=== PATIENT | female | born 1935 | race Caucasian/White ===

== ENCOUNTER 2023-01-20 15:39 | Inpatient (IN) ==
[2023-01-20] MEDS ORDERED: 0.9 % SODIUM CHLORIDE 1,000 ML IV ONE ×2 (15:54→18:02)
[2023-01-20] MEDS ORDERED: traMADol 50 MG TABLET PO ONE (17:03)
[2023-01-20 17:58] LABS: POC Calcium, Ionized 1.17 (1.16-1.32); POC Creatinine 0.7 (0.6-1.2); POC Potassium 3.2 (3.3-5.1)
[2023-01-20] MEDS ORDERED: POTASSIUM CHLORIDE 20 MEQ TABLET PO ONE (18:02)
[2023-01-20 18:22] LABS: Basophils # (Auto) 0.04 K/mcL (0.00-0.30); Basophils % (Auto) 0.4 % (0.0-2.0); Eosinophils # (Auto) 0.11 K/mcL (0.00-0.70); Hematocrit 40.2 % (34.1-44.9); Hemoglobin 13.7 g/dL (11.2-15.7); Lymphocytes % (Auto) 10.7 % (15.5-49.0); Mean Cell Volume 95.5 fL (80.0-100.0); Mean Corpuscular HGB Conc 34.1 g/dL (31.0-36.0); Monocytes # (Auto) 1.08 K/mcL (0.10-0.90); Monocytes % (Auto) 9.6 % (1.0-12.0); Neutrophils % (Auto) 75.8 % (38.0-78.0); Platelet Count 162 K/mcL (140-440); RBC 4.21 M/mcL (3.59-5.38); Red Cell Distribution Width 12.7 % (11.5-14.5); WBC 11.3 K/mcL (4.5-11.0)
[2023-01-20 18:51] LABS: ALT/SGPT 19 U/L (<40); AST/SGOT 25 U/L (<32); Albumin 3.5 gm/dL (3.2-5.2); Alkaline Phosphatase 63 U/L (39-117); Bilirubin,Direct < 0.2 mg/dL (0-0.3); Bilirubin,Total 0.5 mg/dL (0.1-1.0); Globulin 2.8 gm/dL (2.2-3.7)
[2023-01-20] MEDS ORDERED: IPRATROPIUM/ALBUTEROL 3 ML AMPUL.NEB NEB PRN (20:12)
[2023-01-20] MEDS ORDERED: traZODone HCL 50 MG TABLET PO PRN (20:12)
[2023-01-20] MEDS ORDERED: HYDROmorphone 0.5 MG/0.5 ML SYRINGE IV PRN (20:12)
[2023-01-20] MEDS ORDERED: METOPROLOL TARTRATE 5 MG/5 ML VIAL IV PRN (20:12)
[2023-01-20] MEDS ORDERED: ACETAMINOPHEN 325 MG TABLET PO PRN (20:12)
[2023-01-20] MEDS: SENNOSIDES 1 TABLET PO SCH (20:36)
[2023-01-20] MEDS: oxyCODONE IR 5 MG TABLET PO PRN (20:36)
[2023-01-20] MEDS: DOCUSATE SODIUM 100 MG CAPSULE PO SCH (20:36)
[2023-01-20] MEDS: 0.9 % SODIUM CHLORIDE 10 ML SYRINGE IV SCH (20:38)
[2023-01-20] MEDS ORDERED: ALBUTEROL SULFATE 60 PUFF INHALER INH PRN (20:55)
[2023-01-20] MEDS ORDERED: NITROGLYCERIN 0.4 MG TAB.SUBL SL PRN (20:55)
[2023-01-20] MEDS ORDERED: TRIAMCINOLONE ACETONIDE 0.05% TOPICAL SCH (21:00)
[2023-01-20] MEDS: SODIUM CHLORIDE 1 GM TABLET PO SCH (22:44)
[2023-01-20] MEDS: METOPROLOL SUCCINATE 50 MG TAB.XL.24H PO SCH (22:44)
[2023-01-21] MEDS: 0.9 % SODIUM CHLORIDE 1,000 ML IV SCH ×3 (00:02→19:12)
[2023-01-21] MEDS: oxyCODONE IR 5 MG TABLET PO PRN ×3 (00:33→09:00)
[2023-01-21] MEDS: 0.9 % SODIUM CHLORIDE 10 ML SYRINGE IV SCH ×3 (04:29→21:14)
[2023-01-21] MEDS ORDERED: SCOPOLAMINE 1 PATCH PATCH TOPICAL PRN (05:00)
[2023-01-21 07:28] LABS: Basophils # (Auto) 0.05 K/mcL (0.00-0.30); Basophils % (Auto) 0.5 % (0.0-2.0); Eosinophils # (Auto) 0.03 K/mcL (0.00-0.70); Eosinophils % (Auto) 0.3 % (0.0-7.0); Hematocrit 38.1 % (34.1-44.9); Hemoglobin 13.4 g/dL (11.2-15.7); Lymphocytes # (Auto) 1.59 K/mcL (1.50-4.80); Lymphocytes % (Auto) 14.7 % (15.5-49.0); Mean Cell Volume 93.4 fL (80.0-100.0); Mean Corpuscular HGB Conc 35.2 g/dL (31.0-36.0); Mean Platelet Volume 12.5 fL (8.8-12.5); Monocytes # (Auto) 1.32 K/mcL (0.10-0.90); Monocytes % (Auto) 12.2 % (1.0-12.0); Platelet Count 151 K/mcL (140-440); RBC 4.08 M/mcL (3.59-5.38); Red Cell Distribution Width 12.7 % (11.5-14.5); WBC 10.8 K/mcL (4.5-11.0)
[2023-01-21] MEDS ORDERED: POTASSIUM CHLORIDE 10 MEQ TABLET PO SCH (08:00)
[2023-01-21] MEDS: amLODIPine 5 MG TABLET PO SCH (08:03)
[2023-01-21] MEDS: METOPROLOL SUCCINATE 50 MG TAB.XL.24H PO SCH ×2 (08:03→21:11)
[2023-01-21] MEDS: PANTOPRAZOLE 40 MG TABLET PO SCH (08:06)
[2023-01-21] MEDS: ESCITALOPRAM 10 MG TABLET PO SCH (08:07)
[2023-01-21] MEDS: VITAMIN D3 25 MCG TABLET PO SCH (08:07)
[2023-01-21] MEDS: CETIRIZINE 10 MG TABLET PO SCH (08:07)
[2023-01-21] MEDS: FERROUS SULFATE 325 MG TABLET PO SCH (08:07)
[2023-01-21] MEDS ORDERED: diphenhydrAMINE 50 MG/ML VIAL IV PRN (08:18)
[2023-01-21 08:30] LABS: ALT/SGPT 18 U/L (<40); AST/SGOT 23 U/L (<32); Albumin 3.5 gm/dL (3.2-5.2); Albumin/Globulin Ratio 1.5 (1.0-2.3); Alkaline Phosphatase 58 U/L (39-117); Bilirubin,Total 0.6 mg/dL (0.1-1.0); Blood Urea Nitrogen 16 mg/dL (8-23); Calcium 8.6 mg/dL (8.6-10.4); Carbon Dioxide 26 mmol/L (22-30); Chloride 88 mmol/L (96-108); Globulin 2.3 gm/dL (2.2-3.7); Glomerular Filtration Rate 87; Glucose 123 mg/dL (70-105)
[2023-01-21] MEDS ORDERED: MAGNESIUM SULFATE 2 GM/50 ML BAG IV ONE (08:39)
[2023-01-21] MEDS ORDERED: POTASSIUM CHLORIDE 20 MEQ in DEXTROSE 5% IN WATER 250 ML IV ONE (08:39)
[2023-01-21] MEDS: POTASSIUM CHLORIDE 10 MEQ TABLET PO SCH ×2 (08:57→21:11)
[2023-01-21] MEDS ORDERED: C E ZINC COPPER OMEGA3S LUT PO SCH (09:00)
[2023-01-21] MEDS ORDERED: [UNRECOGNIZED DRUG - OTHER] PO SCH (09:00)
[2023-01-21] MEDS: ONDANSETRON 4 MG/2 ML VIAL IV PRN ×2 (09:13)
[2023-01-21] MEDS: Fluticasone-Umeclidin-Vilanter [Trelegy Ellipta] Inhaler INH SCH (13:23)
[2023-01-21] MEDS: DOCUSATE SODIUM 100 MG CAPSULE PO SCH ×2 (13:23→21:11)
[2023-01-21] MEDS: SODIUM CHLORIDE 1 GM TABLET PO SCH ×2 (13:23→21:11)
[2023-01-21] MEDS ORDERED: ROCURONIUM 10 MG/ML ML IV ONE (16:03)
[2023-01-21] MEDS ORDERED: fentaNYL 100 MCG/2 ML VIAL IV ONE (16:03)
[2023-01-21] MEDS ORDERED: PROPOFOL 200 MG/20 ML VIAL IV ONE (16:03)
[2023-01-21] MEDS ORDERED: ONDANSETRON 4 MG/2 ML VIAL ONE (16:05)
[2023-01-21] MEDS ORDERED: ceFAZolin 1 GM VIAL ONE (16:35)
[2023-01-21] MEDS ORDERED: ONDANSETRON 4 MG/2 ML VIAL IV PRN (17:45)
[2023-01-21] MEDS ORDERED: ePHEDrine 50 MG/ML AMPUL IV PRN (17:45)
[2023-01-21] MEDS ORDERED: NALOXONE HCL 0.4 MG/ML VIAL IV PRN (17:45)
[2023-01-21] MEDS ORDERED: IPRATROPIUM/ALBUTEROL 3 ML AMPUL.NEB NEB PRN (17:45)
[2023-01-21] MEDS ORDERED: ACETAMINOPHEN 1,000 MG/100 ML BAG IV ONE (17:45)
[2023-01-21] MEDS ORDERED: fentaNYL 100 MCG/2 ML VIAL IV PRN (17:45)
[2023-01-21] MEDS ORDERED: SUGAMMADEX SODIUM 200 MG/2 ML VIAL IV ONE (17:53)
[2023-01-21] MEDS ORDERED: TRANEXAMIC ACID 1,000 MG/10 ML VIAL IV ONE (19:19)
[2023-01-21] MEDS ORDERED: POLYETHYLENE GLYCOL 3350 17 GM PACKET PO PRN (19:19)
[2023-01-21] MEDS ORDERED: MAGNESIUM HYDROXIDE 30 ML ORAL.SUSP PO PRN (19:19)
[2023-01-21] MEDS ORDERED: BENZOCAINE/MENTHOL 1 LOZENGE PO PRN (19:19)
[2023-01-21] MEDS ORDERED: BISACODYL 10 MG SUPP.RECT PR PRN (19:19)
[2023-01-21] MEDS ORDERED: HYDROmorphone 1 MG/ML SYRINGE IV PRN (19:19)
[2023-01-21] MEDS: 0.45 % SODIUM CHLORIDE 1,000 ML IV SCH (20:15)
[2023-01-21] MEDS ORDERED: SENNOSIDES 1 TABLET PO SCH (21:00)
[2023-01-21] MEDS: BACLOFEN 10 MG TABLET PO SCH (21:08)
[2023-01-21] MEDS: SENNOSIDES 1 TABLET PO SCH (21:08)
[2023-01-21] MEDS: ASPIRIN 81 MG TAB.CHEW PO SCH (21:11)
[2023-01-22] MEDS: ceFAZolin 1 GM VIAL IV SCH ×2 (00:06→10:06)
[2023-01-22] MEDS: KETOROLAC 15 MG/ML VIAL IV SCH ×4 (00:06→17:31)
[2023-01-22] MEDS ORDERED: ACETAMINOPHEN 325 MG TABLET PO PRN ×2 (01:00)
[2023-01-22] MEDS: 0.9 % SODIUM CHLORIDE 1,000 ML IV SCH (04:38)
[2023-01-22] MEDS: 0.9 % SODIUM CHLORIDE 10 ML SYRINGE IV SCH ×3 (05:55→20:36)
[2023-01-22] MEDS: 0.45 % SODIUM CHLORIDE 1,000 ML IV SCH (05:55)
[2023-01-22 06:45] LABS: Basophils # (Auto) 0.03 K/mcL (0.00-0.30); Basophils % (Auto) 0.2 % (0.0-2.0); Eosinophils # (Auto) 0.09 K/mcL (0.00-0.70); Eosinophils % (Auto) 0.7 % (0.0-7.0); Hematocrit 30.9 % (34.1-44.9); Hemoglobin 10.4 g/dL (11.2-15.7); Lymphocytes % (Auto) 11.4 % (15.5-49.0); Mean Cell Volume 96.9 fL (80.0-100.0); Mean Corpuscular HGB Conc 33.7 g/dL (31.0-36.0); Monocytes # (Auto) 1.83 K/mcL (0.10-0.90); Monocytes % (Auto) 14.9 % (1.0-12.0); Neutrophils % (Auto) 71.3 % (38.0-78.0); Platelet Count 137 K/mcL (140-440); RBC 3.19 M/mcL (3.59-5.38); WBC 12.3 K/mcL (4.5-11.0)
[2023-01-22] MEDS: PANTOPRAZOLE 40 MG TABLET PO SCH (07:56)
[2023-01-22] MEDS: POTASSIUM CHLORIDE 10 MEQ TABLET PO SCH ×2 (08:00→17:31)
[2023-01-22 09:03] LABS: ALT/SGPT 13 U/L (<40); AST/SGOT 27 U/L (<32); Albumin 2.6 gm/dL (3.2-5.2); Albumin/Globulin Ratio 1.1 (1.0-2.3); Alkaline Phosphatase 49 U/L (39-117); Bilirubin,Total 0.5 mg/dL (0.1-1.0); Blood Urea Nitrogen 15 mg/dL (8-23); Carbon Dioxide 25 mmol/L (22-30); Chloride 95 mmol/L (96-108); Globulin 2.3 gm/dL (2.2-3.7); Glomerular Filtration Rate 82; Glucose 120 mg/dL (70-105)
[2023-01-22] MEDS: METOPROLOL SUCCINATE 50 MG TAB.XL.24H PO SCH ×2 (09:16→20:33)
[2023-01-22] MEDS: CETIRIZINE 10 MG TABLET PO SCH (09:17)
[2023-01-22] MEDS: FERROUS SULFATE 325 MG TABLET PO SCH (09:17)
[2023-01-22] MEDS: ASPIRIN 81 MG TAB.CHEW PO SCH ×2 (09:17→20:34)
[2023-01-22] MEDS: ESCITALOPRAM 10 MG TABLET PO SCH (09:17)
[2023-01-22] MEDS: amLODIPine 5 MG TABLET PO SCH (09:17)
[2023-01-22] MEDS: VITAMIN D3 25 MCG TABLET PO SCH (09:18)
[2023-01-22] MEDS: SODIUM CHLORIDE 1 GM TABLET PO SCH ×2 (09:18→20:33)
[2023-01-22] MEDS: DOCUSATE SODIUM 100 MG CAPSULE PO SCH ×2 (09:18→20:33)
[2023-01-22] MEDS: ONDANSETRON 4 MG/2 ML VIAL IV PRN (10:20)
[2023-01-22] MEDS: Fluticasone-Umeclidin-Vilanter [Trelegy Ellipta] Inhaler INH SCH ×2 (11:21→16:18)
[2023-01-22] MEDS: BACLOFEN 10 MG TABLET PO SCH (20:33)
[2023-01-22] MEDS: SENNOSIDES 1 TABLET PO SCH (20:33)
[2023-01-22] MEDS: oxyCODONE IR 5 MG TABLET PO PRN (20:44)
[2023-01-22] MEDS ORDERED: ATORVASTATIN 10 MG TABLET PO SCH (21:00)
[2023-01-23] MEDS: KETOROLAC 15 MG/ML VIAL IV SCH ×4 (00:13→17:20)
[2023-01-23] MEDS: 0.9 % SODIUM CHLORIDE 10 ML SYRINGE IV SCH ×3 (05:24→20:24)
[2023-01-23] MEDS: POTASSIUM CHLORIDE 10 MEQ TABLET PO SCH ×2 (07:13→17:20)
[2023-01-23] MEDS: PANTOPRAZOLE 40 MG TABLET PO SCH (07:13)
[2023-01-23 08:05] LABS: ALT/SGPT 7 U/L (<40); AST/SGOT 32 U/L (<32); Albumin 2.8 gm/dL (3.2-5.2); Albumin/Globulin Ratio 1.2 (1.0-2.3); Alkaline Phosphatase 46 U/L (39-117); Bilirubin,Total 0.6 mg/dL (0.1-1.0); Blood Urea Nitrogen 18 mg/dL (8-23); Calcium 8.7 mg/dL (8.6-10.4); Carbon Dioxide 22 mmol/L (22-30); Chloride 96 mmol/L (96-108); Globulin 2.3 gm/dL (2.2-3.7); Glomerular Filtration Rate 87; Glucose 97 mg/dL (70-105)
[2023-01-23 08:06] LABS: Basophils # (Auto) 0.13 K/mcL (0.00-0.30); Basophils % (Auto) 1.4 % (0.0-2.0); Eosinophils # (Auto) 0.08 K/mcL (0.00-0.70); Eosinophils % (Auto) 0.8 % (0.0-7.0); Hematocrit 28.6 % (34.1-44.9); Hemoglobin 8.5 g/dL (11.2-15.7); Lymphocytes # (Auto) 1.05 K/mcL (1.50-4.80); Lymphocytes % (Auto) 11.1 % (15.5-49.0); Mean Cell Volume 113.5 fL (80.0-100.0); Mean Corpuscular HGB Conc 29.7 g/dL (31.0-36.0); Mean Platelet Volume 12.3 fL (8.8-12.5); Monocytes # (Auto) 1.47 K/mcL (0.10-0.90); Monocytes % (Auto) 15.5 % (1.0-12.0); Neutrophils % (Auto) 70.1 % (38.0-78.0); Platelet Count 125 K/mcL (140-440); RBC 2.52 M/mcL (3.59-5.38); Red Cell Distribution Width 13.2 % (11.5-14.5); WBC 9.5 K/mcL (4.5-11.0)
[2023-01-23] MEDS: VITAMIN D3 25 MCG TABLET PO SCH (08:58)
[2023-01-23] MEDS: SODIUM CHLORIDE 1 GM TABLET PO SCH ×2 (08:59→20:19)
[2023-01-23] MEDS: DOCUSATE SODIUM 100 MG CAPSULE PO SCH ×2 (08:59→20:19)
[2023-01-23] MEDS: CETIRIZINE 10 MG TABLET PO SCH (08:59)
[2023-01-23] MEDS: ESCITALOPRAM 10 MG TABLET PO SCH (08:59)
[2023-01-23] MEDS: METOPROLOL SUCCINATE 50 MG TAB.XL.24H PO SCH ×2 (08:59→20:19)
[2023-01-23] MEDS: ASPIRIN 81 MG TAB.CHEW PO SCH ×2 (08:59→20:19)
[2023-01-23] MEDS: amLODIPine 5 MG TABLET PO SCH (08:59)
[2023-01-23] MEDS: FERROUS SULFATE 325 MG TABLET PO SCH (08:59)
[2023-01-23] MEDS: Fluticasone-Umeclidin-Vilanter [Trelegy Ellipta] Inhaler INH SCH (09:03)
[2023-01-23] MEDS: oxyCODONE IR 5 MG TABLET PO PRN (09:03)
[2023-01-23] MEDS ORDERED: traMADol 50 MG TABLET PO PRN (13:33)
[2023-01-23] MEDS: ONDANSETRON 4 MG/2 ML VIAL IV PRN (14:29)
[2023-01-23] MEDS ORDERED: BACLOFEN 10 MG TABLET PO PRN (19:55)
[2023-01-23] MEDS: SENNOSIDES 1 TABLET PO SCH (20:19)
[2023-01-24 07:34] LABS: ALT/SGPT 7 U/L (<40); AST/SGOT 29 U/L (<32); Albumin/Globulin Ratio 1.3 (1.0-2.3); Alkaline Phosphatase 50 U/L (39-117); Bilirubin,Total 0.7 mg/dL (0.1-1.0); Blood Urea Nitrogen 14 mg/dL (8-23); Calcium 8.8 mg/dL (8.6-10.4); Carbon Dioxide 30 mmol/L (22-30); Chloride 91 mmol/L (96-108); Globulin 2.3 gm/dL (2.2-3.7); Glomerular Filtration Rate 94; Glucose 126 mg/dL (70-105)
[2023-01-24] MEDS: 0.9 % SODIUM CHLORIDE 10 ML SYRINGE IV SCH (07:38)
[2023-01-24 07:53] LABS: Basophils # (Auto) 0.02 K/mcL (0.00-0.30); Basophils % (Auto) 0.1 % (0.0-2.0); Eosinophils # (Auto) 0.03 K/mcL (0.00-0.70); Eosinophils % (Auto) 0.2 % (0.0-7.0); Hematocrit 25.8 % (34.1-44.9); Hemoglobin 8.6 g/dL (11.2-15.7); Lymphocytes # (Auto) 1.22 K/mcL (1.50-4.80); Lymphocytes % (Auto) 7.8 % (15.5-49.0); Mean Corpuscular HGB Conc 33.3 g/dL (31.0-36.0); Mean Platelet Volume 12.5 fL (8.8-12.5); Monocytes % (Auto) 12.8 % (1.0-12.0); Neutrophils % (Auto) 77.7 % (38.0-78.0); Platelet Count 150 K/mcL (140-440); RBC 2.53 M/mcL (3.59-5.38); Red Cell Distribution Width 13.2 % (11.5-14.5); WBC 15.6 K/mcL (4.5-11.0)
[2023-01-24] MEDS: PANTOPRAZOLE 40 MG TABLET PO SCH (07:58)
[2023-01-24] MEDS: POTASSIUM CHLORIDE 10 MEQ TABLET PO SCH (09:06)
[2023-01-24] MEDS: METOPROLOL SUCCINATE 50 MG TAB.XL.24H PO SCH (09:07)
[2023-01-24] MEDS: CETIRIZINE 10 MG TABLET PO SCH (09:07)
[2023-01-24] MEDS: VITAMIN D3 25 MCG TABLET PO SCH (09:07)
[2023-01-24] MEDS: amLODIPine 5 MG TABLET PO SCH (09:07)
[2023-01-24] MEDS: SODIUM CHLORIDE 1 GM TABLET PO SCH (09:08)
[2023-01-24] MEDS: DOCUSATE SODIUM 100 MG CAPSULE PO SCH (09:08)
[2023-01-24] MEDS: ESCITALOPRAM 10 MG TABLET PO SCH (09:08)
[2023-01-24] MEDS: ASPIRIN 81 MG TAB.CHEW PO SCH (09:08)
[2023-01-24] MEDS ORDERED: ONDANSETRON 4 MG ODT TABLET SL PRN (09:59)
[2023-01-24] MEDS: FERROUS SULFATE 325 MG TABLET PO SCH (10:14)
[2023-01-24] MEDS: Fluticasone-Umeclidin-Vilanter [Trelegy Ellipta] Inhaler INH SCH (10:20)
== END 2023-01-24 12:07 | DRG 481 ==
LOC: ED 15:39 → MEDSUR 19:47
PROVIDERS: ADMIT Internal Medicine; ATTEND Internal Medicine